=== PATIENT | female | born 1955 ===

== ENCOUNTER 2021-07-27 11:10 | Day surgery (SDC) | payer OTHER ==
[2021-07-24 13:34] LABS: Absolute Lymphocytes (CBC) 1.5 K/uL (0.7-4.9); Basophils % 2.1 % (0-1.3); Hematocrit 39.4 % (36.0-45.0); Lymphocytes % 29.9 % (15.3-44.8); MPV 7.1 fL (7.6-11.3); RBC Red Blood Cell Count 4.84 M/uL (3.86-4.86)
[2021-07-24 13:38] LABS: Protime INR 0.88
--- NOTE | 2021-07-25 13:05 | EKG ---
Test Date: 2021-07-24 Test Time: 13:03:08 Pressure Steamer Tender: MARCIE MEASUREMENT RESULTS: Intervals: Rate: 66 [place]: 156 QRSD: 80 QT: 432 QTc: 452 [place]: P: 66 NJ: 156 QRS: 8 T: 71 INTERPRETIVE STATEMENTS: Normal sinus rhythm Normal ECG Compared to ECG 02/18/2019 10:29:40 No significant changes Electronically Signed On 07-25-21 13:02:55 BEAM DOFFER by Avinash Pandya
[~2021-07-27 11:10] MED LIST: ATROPINE SULF 1 MG/10 ML SYR IV ONE; HEPA 1000U/500MLS 2,000 UNIT/1,000 ML BAG IV ONE; HEPARIN 5000 UNIT/ML 1 ML VIAL ONE; LIDOCAINE 1% 20 ML MDV ONE; NITROGLYCERIN 100 MCG/ML SYR (for cath lab use only) IV ONE; NITROGLYCERIN/D5W 25 MG/250 ML BTL IV ONE; VERAPAMIL HCL 10 MG/4 ML VIAL IV ONE
[2021-07-27] MEDS ORDERED: NA CHLORIDE 0.9% 500 ML ONE (11:11)
[2021-07-27 11:41] VITALS: TEMP 98.7
[2021-07-27] MEDS ORDERED: FENTANYL CITR 100 MCG/2 ML ONE (12:02)
[2021-07-27] MEDS ORDERED: MIDAZOLAM HCL 2 MG/2 ML INJ ONE (12:02)
[2021-07-27] MEDS ORDERED: NA CHLORIDE 0.9% 0 ML IV ONE (12:31)
--- NOTE | 2021-07-27 14:35 | OP ---
Date of Procedure: 07/27/2021 Surgeon: GERRI RIGGS Procedure Performed: 1.Selective coronary angiogram. 2.Right heart catheterization. Access: 1.Radial artery 6-[place] closed with TR band. 2.Right IJ 7-[place] closed with manual pressure. Complications: None. Bleeding: Less than 10 mL. Anesthesia: Total sedation time was 25 minutes. Description Of Procedure: After risks, benefits, and alternatives were explained, the patient agreed to proceed and signed informed consent. The patient was brought into cardiac catheterization [facility], prepped and draped in usual sterile fashion. We accessed right radial artery using pediatric mi cropuncture kit and placed a 6-[place] slender sheath and then accessed right IJ using micropuncture k it under ultrasound guidance and placed a 7-[place] pinnacle sheath and took balloon tip 7-[place] swan catheter through the IJ access into the RA, RV, PA which recorded waveform and pressure and took PA saturation for cardiac output measurements and removed the [place]. Then, took a 5-[place] tiger 4.0 cat heter over the J-wire through the radial access into the aortic root, engaged left main and the right coronary artery and took standard views and then removed the catheter and sheath, placed TR band. G ood hemostasis. Findings: 1.Left main; large, normal. 2.LAD, moderate-sized and normal. Diagonal branches are normal. 3.Left circumflex: Moderate-size vessel, normal. 4.RCA: Large vessel, dominant and normal. Right heart catheterization number: RA pressure was 7. RV pressure was 23/3 with mean of 6. PA pre ssure was 21/11 with mean of 16. Pulmonary wedge pressure was 7. Conclusion: 1.Normal coronary arteries. 2.Normal filling pressures. Recommendations: Follow up with Pulmonary to evaluate the lungs as a source of her shortness of mohamud th. SR/MODL Voice ID: [id number] Report ID: [id number]
[2021-07-27 14:56] VITALS: BP 150/63; O2SAT 96
== END 2021-07-27 13:18 | disposition home or self-care (01) ==
LOC: CCL 11:10
PROVIDERS: ATTEND Internal Medicine
DX: I20.0 Unstable angina (principal); R06.02 Shortness of breath; I10 Essential (primary) hypertension; E78.5 Hyperlipidemia, unspecified; Z88.6 Allergy status to analgesic agent; Z88.0 Allergy status to penicillin; Z20.822 Contact with and (suspected) exposure to COVID-19; Z79.82 Long term (current) use of aspirin
CPT/HCPCS: 93005; 85025; 80048; 36415; 85610; 85730; 93456; U0002; C1893; J1644 ×2; J2250; J3010; J7040

== ENCOUNTER 2024-09-03 10:45 | Day surgery (SDC) | payer OTHER ==
[2024-09-02 14:48] LABS: Absolute Basophils 0.1 K/uL (0-0.5); Absolute Eosinophils 0.2 K/uL (0-0.5); Absolute Lymphocytes (CBC) 1.8 K/uL (0.7-4.9); Absolute Monocytes 0.7 K/uL (0.1-1.3); Absolute Neutrophil 3.5 K/uL (1.8-8.0); Basophils % 0.9 % (0-1.3); Eosinophils % 3.5 % (0-4.4); Hematocrit 38.1 % (36.0-45.0); Hemoglobin 12.7 g/dL (12.0-15.0); Lymphocytes % 28.3 % (15.3-44.8); MCH 27.9 pg (27.0-35.0); MCHC 33.3 g/dL (32.0-36.0); MCV 83.8 fL (80-100); MPV 7.1 fL (7.6-11.3); Neutrophils % 56.3 % (41.7-73.7); Nucleated Red Blood Cells % 0.1 % (0-0); Platelets 276 thou/uL (152-406); RBC Red Blood Cell Count 4.55 M/uL (3.86-4.86); Red Cell Distribution Width 15.6 % (12.1-15.2)
[2024-09-02 15:05] LABS: PT Prothrombin Time 10.2 SECONDS (9.4-12.5); PTT, Activated Partial Thromb 29.7 SECONDS (24.3-36.9); Protime INR 0.97
[2024-09-02 15:09] LABS: Anion Gap 7.1 mEq/L (5.0-15.0); Potassium 4.1 mEq/L (3.5-5.1)
--- NOTE | 2024-09-02 17:08 | RAD REPORT ---
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 No pleural effusions or pneumothorax. No pulmonary edema. MEDIASTINUM: The mediastinal silhouette is within normal limits. CARDIAC: Mild cardiomegaly UPPER ABDOMEN: No significant abnormality. BONES: No acute abnormality. ACDF in the cervical spine. LINES/TUBES/OTHER: N/A IMPRESSION: No evidence of acute cardiopulmonary disease.
[2024-09-03] MEDS: NA CHLORIDE 0.9% 500 ML ONE (11:30)
[2024-09-03] MEDS ORDERED: HEPARIN 10,000 UNIT/10 ML VIAL IV ONE (11:42)
[2024-09-03] MEDS ORDERED: LIDOCAINE 1% 20 ML MDV ONE (11:42)
[2024-09-03] MEDS ORDERED: HEPA 1000U/500MLS 2,000 UNIT/1,000 ML BAG IV ONE (11:42)
[2024-09-03] MEDS ORDERED: ATROPINE SULF 1 MG/10 ML SYR IV ONE (11:43)
[2024-09-03] MEDS ORDERED: HEPARIN 5000 UNIT/ML 1 ML VIAL ONE (11:43)
[2024-09-03] MEDS ORDERED: MIDAZOLAM HCL 2 MG/2 ML INJ ONE (11:43)
[2024-09-03] MEDS ORDERED: VERAPAMIL HCL 10 MG/4 ML VIAL IV ONE (11:43)
[2024-09-03] MEDS ORDERED: CLOPIDOGREL 75 MG TABLET ONE (11:43)
[2024-09-03] MEDS ORDERED: FENTANYL CITR 100 MCG/2 ML ONE (11:44)
[2024-09-03] MEDS ORDERED: TICAGRELOR 90 MG TABLET PO ONE (11:44)
[2024-09-03] MEDS ORDERED: ASPIRIN 325 MG TAB ONE (11:44)
--- NOTE | 2024-09-03 11:49 | EKG ---
Test Date: 2024-09-02 Test Time: 15:39:08 Dog Obedience Instructor: JULIO MEASUREMENT RESULTS: Intervals: Rate: 62 MO: 192 QRSD: 86 QT: 438 QTc: 444 [place]: P: 55 MO: 192 QRS: -38 T: 81 INTERPRETIVE STATEMENTS: Normal sinus rhythm Left axis deviation Abnormal ECG Compared to ECG 07/24/2021 13:03:08 Left-axis deviation now present Electronically Signed On 09-03-24 11:48:53 EXECUTIVE SECRETARY by He Merritt
--- NOTE | 2024-09-03 14:56 | OP ---
Date of Procedure: 09/03/2024 Surgeon: GERRI RIGGS Procedures Performed: 1.Selective coronary angiogram. 2.Left heart catheterization. Indication: Chest pain with abnormal stress test. Access: Right radial artery 6-Bengali closed with TR band. Complications: None. Bleeding: Less than 50 mL. Anesthesia: Total sedation time was 45 minutes. Used Versed and fentanyl. Description Of Procedure: After risks, benefits, and alternatives were explained, the patient agreed to procedure and signed informed consent. The patient was brought into cardiac catheterization labo [facility], prepped and draped in usual sterile fashion. Then, I accessed right radial artery using pedi atric micropuncture kit, placed 6-Beng[place] Slender sheath and took 5-Bengali Emmalena 4.0 catheter over a J -wire into the aortic root, crossed the aortic valve, measured the LVEDP. Pullback did not record an y gradient. Then, I engaged the left main, took standard views, and then in the RCA, took standard v iews, removed the catheter and the sheath and placed TR band with good hemostasis. Findings: 1.Left main is normal. 2.LAD is normal. Diagonal 2 branch has proximal 50% stenosis and diagonal 1 branch is normal. 3.Left circumflex; large vessel, normal. 4.RCA; large and dominant and normal. 5.LVEDP is borderline at 13 mmHg. Conclusion: Moderate coronary artery disease involving diagonal 2 branch with borderline LVEDP. Recommendation: Medical management. SR/MODL Voice ID: [id number] Report ID: [id number]
[2024-09-04 02:54] VITALS: BP 122/73; TEMP 97.3; O2SAT 100
== END 2024-09-03 15:20 | disposition home or self-care (01) ==
LOC: CCL 10:45
PROVIDERS: ATTEND Internal Medicine
DX: I25.10 Atherosclerotic heart disease of native coronary artery without angina pectoris (principal); I10 Essential (primary) hypertension; Z88.1 Allergy status to other antibiotic agents; Z88.5 Allergy status to narcotic agent
CPT/HCPCS: 93005; 85025; 80048; 36415; 85610; 85730; 71046; 93458; 76937; C1893; Q9966; J1644; J2003; J2250; J3010; J7040; 99152; 99153; J0461